=== PATIENT | male | born 1980 | race Caucasian/White ===

== ENCOUNTER → 2016-11-29 | Outpatient (REF) ==
[~2016-11-29] MED LIST: FLEXERIL10 MG PO; NO HOME MEDICATIONS; NORCO 325 MG-51 TAB PO
== END ==
LOC: WSOH 16:30
DX: Z02.89 Encounter for other administrative examinations (principal)

== ENCOUNTER 2017-06-16 09:24 | Outpatient (RCR) | payer OTHER ==
[2017-08-01] MEDS ORDERED: COLACE 100100 MG/CAP PO (08:48)
[2017-08-01] MEDS ORDERED: ZOFRAN 4MG T4 MG/TAB PO (08:48)
[2017-08-01] MEDS ORDERED: PERCOCET 325 MG1 TA2 PO (08:50)
[2017-08-01] MEDS ORDERED: MOBIC15 MG PO (08:50)
== END 2017-09-14 | disposition home or self-care (01) ==
LOC: WSOH
DX: M25.562 Pain in left knee (principal); X50.3XXA Overexertion from repetitive movements, initial encounter; Y93.39 Activity, other involving climbing, rappelling and jumping off; Y93.H3 Activity, building and construction; Y99.0 Civilian activity done for income or pay; Z79.899 Other long term (current) drug therapy
CPT/HCPCS: 24774; L1810

== ENCOUNTER → 2017-06-27 | Outpatient (CLI) | payer OTHER | LOC: COL.RAD 08:03 | DX: M23.222 Derangement of posterior horn of medial meniscus due to old tear or injury, left knee (principal) ==

== ENCOUNTER 2017-07-31 10:57 | Outpatient (RCR) | payer OTHER ==
[2017-08-01] MEDS ORDERED: ZOFRAN 4MG T4 MG/TAB PO (08:48)
[2017-08-01] MEDS ORDERED: COLACE 100100 MG/CAP PO (08:48)
[2017-08-01] MEDS ORDERED: PERCOCET 325 MG1 TA2 PO (08:50)
[2017-08-01] MEDS ORDERED: MOBIC15 MG PO (08:50)
== END 2017-08-02 09:19 | disposition home or self-care (01) ==
LOC: WSC 10:57
DX: Z01.818 Encounter for other preprocedural examination (principal)

== ENCOUNTER 2017-08-01 05:44 | Day surgery (SDC) | payer OTHER ==
[~2017-08-01] VITALS: Ht 177.8 cm; Wt 95.5 kg
[2017-08-01] VITALS (7 sets, daily range): BP systolic 117–133; BP diastolic 61–81; PULSE 57–71; TEMP 97.3–98
[2017-08-01] MEDS ORDERED: ZOFRAN 4MG T4 MG/TAB PO (08:48)
[2017-08-01] MEDS ORDERED: COLACE 100100 MG/CAP PO (08:48)
[2017-08-01] MEDS ORDERED: PERCOCET 325 MG1 TA2 PO (08:50)
[2017-08-01] MEDS ORDERED: MOBIC15 MG PO (08:50)
== END 2017-08-01 11:30 | disposition home or self-care (01) ==
LOC: SDCO 05:44
DX: S83.242A Other tear of medial meniscus, current injury, left knee, initial encounter (principal); X50.0XXA Overexertion from strenuous movement or load, initial encounter
CPT/HCPCS: J0690; J1100; J1170; J1885; J2405; J2704; J3010; J7120

== ENCOUNTER 2017-10-30 14:45 | Outpatient (RCR) | payer OTHER ==
[~2017-10-30 14:45] MED LIST changes: +COLACE 100100 MG/CAP PO; +MOBIC15 MG PO; +PERCOCET 325 MG1 TA2 PO; +ZOFRAN 4MG T4 MG/TAB PO
== END 2017-11-03 | disposition home or self-care (01) ==
LOC: WSC
DX: S83.282D Other tear of lateral meniscus, current injury, left knee, subsequent encounter (principal)

== ENCOUNTER 2017-11-13 11:30 | Outpatient (RCR) | payer OTHER | END 2017-12-23 17:26 | disposition home or self-care (01) | LOC: WSC 11:30 | DX: Z47.89 Encounter for other orthopedic aftercare (principal) ==